=== PATIENT | male | born 1950 | race Caucasian/White ===

== ENCOUNTER 2021-07-01 11:28 | Observation (INO) ==
[2021-07-01] MEDS ORDERED: ENOXAPARIN 100 MG/ML SYRINGE SUBCUT STA (13:08)
[2021-07-01] MEDS ORDERED: ASPIRIN CHEW 81 MG TABLET PO STA (13:09)
[2021-07-01] MEDS ORDERED: ENOXAPARIN 80 MG/0.8 ML SYRINGE SUBCUT ONE ×2 (13:10→15:00)
[2021-07-01] MEDS ORDERED: ASPIRIN 325 MG TABLET ONE (13:11)
[2021-07-01] MEDS ORDERED: ENOXAPARIN 80 MG/0.8 ML SYRINGE SUBCUT STA (13:15)
[2021-07-01 13:37] LABS: Basophils # 0.1 10*3/uL (0.0-0.2); Basophils % 0.7 % (0.0-0.8); Eosinophils # 0.2 10*3/uL (0.0-0.87); Eosinophils % 2.9 % (0.00-10.9); Hematocrit 43.7 VOL% (42.0-52.0); Hemoglobin 14.9 GM/DL (14.0-18.0); Immature Granulocytes % 0.1 %; Immature Granulocytes Absolute 0.01 #; Lymphocytes # 2.9 10*3/uL (1.4-4.0); Lymphocytes % 39.1 % (21.2-54.2); Mean Corpuscular HGB Conc 34.1 GM/DL (32-36); Mean Corpuscular Volume 95.4 FL (87-102); Mean Platelet Volume 10.9 FL (9.6-12.0); Monocytes % 8.8 % (1.7-12.7); Neutrophils % 48.4 % (38.7-73.9); Platelet Count 207 T/CUMM (130-400); Red Blood Count 4.58 MC/CUMM (3.8-5.5); White Blood Count 7.5 T/CUMM (4-12)
[2021-07-01] MEDS ORDERED: ZALEPLON 5 MG CAPSULE PO PRN (13:47)
[2021-07-01] MEDS ORDERED: hydrALAZINE 20 MG/1 ML VIAL IV PRN (13:47)
[2021-07-01] MEDS ORDERED: MAGNESIUM SULF RIDER 4 GM/100 ML PREMIX IV PRN (13:47)
[2021-07-01] MEDS ORDERED: ACETAMINOPHEN 325 MG TABLET PO PRN (13:47)
[2021-07-01] MEDS ORDERED: MAGNESIUM SULF RIDER 2 GM/50 ML PREMIX IV PRN (13:47)
[2021-07-01] MEDS ORDERED: MORPHINE 2 MG/1 ML SYRINGE IV PRN (13:47)
[2021-07-01] MEDS ORDERED: ONDANSETRON 4 MG/2 ML VIAL IV PRN (13:47)
[2021-07-01] MEDS ORDERED: NITROGLYCERIN 2% OINT 1 INCH/GM PACK TOP STA (13:49)
[2021-07-01 13:58] LABS: Albumin 3.9 G/DL (3.4-5.0); Bilirubin,Total 0.5 MG/DL (0.20-1.00); Calcium 8.8 MG/DL (8.5-10.1); Osmolality,Calculated 273.8 MOS/KG (273-304); Potassium 3.7 MMOL/L (3.5-5.1); Total Protein 7.5 G/DL (6.4-8.2)
[2021-07-01] MEDS ORDERED: POTASSIUM CHLORIDE RIDER 10 MEQ/100 ML PREMIX IV PRN (14:13)
[2021-07-01] MEDS: SODIUM CHLORIDE 0.45% 1,000 ML IV SCH (14:44)
[2021-07-01] MEDS ORDERED: ENOXAPARIN 80 MG/0.8 ML SYRINGE SUBCUT SCH (15:00)
[2021-07-01] MEDS: ROSUVASTATIN 20 MG TABLET PO SCH (18:50)
[2021-07-01] MEDS: METOPROLOL TARTRATE 25 MG TABLET PO SCH ×2 (18:50→20:28)
[2021-07-02] MEDS: SODIUM CHLORIDE 0.45% 1,000 ML IV SCH ×4 (00:01→21:01)
[2021-07-02 05:29] LABS: Basophils # 0.1 10*3/uL (0.0-0.2); Basophils % 0.6 % (0.0-0.8); Eosinophils # 0.5 10*3/uL (0.0-0.87); Eosinophils % 6.1 % (0.00-10.9); Hematocrit 40.7 VOL% (42.0-52.0); Hemoglobin 13.5 GM/DL (14.0-18.0); Immature Granulocytes % 0.4 %; Immature Granulocytes Absolute 0.03 #; Lymphocytes % 37.7 % (21.2-54.2); Mean Corpuscular HGB Conc 33.2 GM/DL (32-36); Mean Corpuscular Volume 97.4 FL (87-102); Mean Platelet Volume 10.4 FL (9.6-12.0); Monocytes % 8.4 % (1.7-12.7); Neutrophils % 46.8 % (38.7-73.9); Platelet Count 197 T/CUMM (130-400); Red Blood Count 4.18 MC/CUMM (3.8-5.5); White Blood Count 7.9 T/CUMM (4-12)
[2021-07-02 06:52] LABS: Calcium 8.5 MG/DL (8.5-10.1); Osmolality,Calculated 273.8 MOS/KG (273-304); Potassium 4.2 MMOL/L (3.5-5.1); Risk Ratio 5.18; Thyroid Stimulating Hormone 1.57 uIU/ml (0.358-3.74); VLDL Cholesterol 47.2 MG/DL
[2021-07-02] MEDS ORDERED: HEPARIN/NACL 0.9% 2 UNITS/ML 3,000 UNIT/1,500 ML BAG IV ONE (09:19)
[2021-07-02] MEDS ORDERED: LIDOCAINE 1% 20 ML VIAL ONE (09:19)
[2021-07-02] MEDS: PANTOPRAZOLE 40 MG TABLET PO SCH (09:52)
[2021-07-02] MEDS: ROSUVASTATIN 20 MG TABLET PO SCH (09:52)
[2021-07-02] MEDS: METOPROLOL TARTRATE 25 MG TABLET PO SCH ×2 (09:52→20:51)
[2021-07-02] MEDS: ASPIRIN EC 81 MG TABLET PO SCH (09:52)
[2021-07-02] MEDS ORDERED: MIDAZOLAM 2 MG/2 ML VIAL ONE ×2 (11:54→12:29)
[2021-07-02] MEDS ORDERED: fentaNYL 100 MCG/2 ML VIAL ONE (11:55)
[2021-07-02] MEDS ORDERED: HEPARIN 5,000 UNIT/1 ML VIAL ONE (12:20)
[2021-07-02] MEDS ORDERED: NITROGLYCERIN DRIP 50 MG/250 ML BOTTLE IV ONE (12:21)
[2021-07-02] MEDS ORDERED: CLOPIDOGREL 300 MG TABLET ONE (12:22)
[2021-07-03] MEDS: SODIUM CHLORIDE 0.45% 1,000 ML IV SCH ×2 (04:48→05:41)
[2021-07-03 05:17] LABS: Basophils % 0.6 % (0.0-0.8); Eosinophils # 0.3 10*3/uL (0.0-0.87); Eosinophils % 4.4 % (0.00-10.9); Hematocrit 38.4 VOL% (42.0-52.0); Hemoglobin 12.9 GM/DL (14.0-18.0); Immature Granulocytes % 0.2 %; Immature Granulocytes Absolute 0.01 #; Lymphocytes # 2.5 10*3/uL (1.4-4.0); Lymphocytes % 38.3 % (21.2-54.2); Mean Corpuscular HGB Conc 33.6 GM/DL (32-36); Mean Corpuscular Volume 97.2 FL (87-102); Mean Platelet Volume 10.5 FL (9.6-12.0); Monocytes % 10.6 % (1.7-12.7); Neutrophils % 45.9 % (38.7-73.9); Platelet Count 170 T/CUMM (130-400); Red Blood Count 3.95 MC/CUMM (3.8-5.5); Red Cell Distribution Width 11.8 % (9.3-17.3); White Blood Count 6.4 T/CUMM (4-12)
[2021-07-03 05:42] LABS: Calcium 8.3 MG/DL (8.5-10.1); Osmolality,Calculated 280.5 MOS/KG (273-304); Potassium 3.9 MMOL/L (3.5-5.1)
[2021-07-03 08:04] VITALS: BP 124/70
[2021-07-03] MEDS: ROSUVASTATIN 20 MG TABLET PO SCH (08:48)
[2021-07-03] MEDS: METOPROLOL TARTRATE 25 MG TABLET PO SCH (08:48)
[2021-07-03] MEDS: PANTOPRAZOLE 40 MG TABLET PO SCH (08:48)
[2021-07-03] MEDS: ASPIRIN EC 81 MG TABLET PO SCH (08:48)
[2021-07-03] MEDS ORDERED: CLOPIDOGREL 75 MG TABLET PO SCH (09:00)
== END 2021-07-03 10:37 | disposition home or self-care (01) ==
LOC: N.ED 11:28 → N.EDINP 11:28 → N.TELEN 18:12
PROVIDERS: ADMIT Internal Medicine Cardiovascular Disease; ATTEND Internal Medicine Cardiovascular Disease
PROC: CLCCHCL (ICD-10-PCS; 2021-07-02 12:15)